=== PATIENT | male | born 1955 | race Two or more races ===

== ENCOUNTER 2017-02-09 14:56 | Inpatient (IN) ==
--- NOTE | 2017-02-09 15:33 | Emergency Department Note ---
IDe Brittany, am scribing for, and in the presence of, Pratima Johnson DO 15:31. IAlex Debra, DO, personally performed the services described in this documentation, ascribed by Delaney Kc in my presence, and it is both accurate and complete 533 . Arrival - Arrival Chief Complaint: Abdominal / Flank Pain Stated Complaint: ABD.PAIN ED Nursing Triage Note: C/O HAVING ABD.PAIN SINCE LAST EVENING., STATES THE PAIN GOT WORSE THIS AM AROUND 0100 , + NAUSEA., + VOMITING SINCE THAT TIME., TRANSFER FROM [facility] LAST BM WAS LAST EVENING ., Mode of Arrival: Ambulatory Limitations: No Limitations Source: Patient, RN Notes Reviewed - History of Present Illness HPI Narrative: Patient is a 61 y/o white male presenting to the ED from [facility] for further evaluation of possible small intestinal blockage. Patient presented to [place] ED this morning for abdominal pain that began yesterday evening and progressively worsened this morning around 0100. Upon that time patient began to experience associated nausea and vomiting. Last normal bowel movement was yesterday evening. Patient reports a history of Cholecystectomy and Appendectomy with complications that turned laparoscopic procedure into an open procedure. About a year later he had to have a hernia repair. Patient has no other complaint/pain. Review of System - Review of System 12 point system: reviewed and no additional remarkable complaints except as stated - Review of System Gastrointestinal: Present: abdominal pain, nausea, vomiting Medical,Surgical,& Family Hx - Medical History Cardio: History of: Hypertension Endocrine: History of: Dyslipidemia - Social History Smoking Status: Never smoker Frequency of Alcohol Use: Rarely Type of Drug Use: None Exam Vital Signs: Vital Signs Temperature 98.5 F 02/09/17 14:57 Pulse Rate 100 H 02/09/17 15:30 Respiratory Rate 20 02/09/17 15:30 Blood Pressure 135/93 02/09/17 15:30 O2 Sat by Pulse Oximetry 94 L 02/09/17 15:30 - General General appearance: alert, in no apparent distress - Head Head exam: Present: atraumatic, normocephalic, normal inspection - Eye Eye exam: Present: normal appearance, PERRL, EOMI - ENT ENT exam: Present: normal exam, normal oropharynx - Neck Neck exam: Present: normal inspection, full ROM, trachea midline - Chest Chest inspection: Present: normal inspection, symmetric chest wall rise - Respiratory Respiratory exam: Present: normal lung sounds bilaterally. Absent: rales, rhonchi, wheezes - Cardiovascular Cardiovascular exam: Present: regular rate, normal rhythm, normal heart sounds. Absent: murmur, rubs, gallop - Abdominal Exam Abdominal exam: Present: soft, distention, tenderness (diffuse abdominal tenderness to palpation), diminished bowel sounds, incision (scar consistent with prior open cholecystectomy and appendectomy). Absent: normal bowel sounds - Extremities Exam Extremities exam: Present: normal inspection - Back Exam Back exam: Present: normal inspection - Neurological Exam Neurological exam: Present: alert, oriented X3, CN II-XII intact. Absent: motor sensory deficit - Psychiatric Psychiatric exam: Present: normal affect, normal mood - Skin Skin exam: Present: warm, dry, intact, normal color Course Course Narrative: spoke with Dr Moralez who will admit pt, pt is stable at this time Disposition Clinical Impression: Small bowel obstruction Case discussed with: patient Disposition: Still a Patient Condition: Stable Time of Disposition: 15:55
[2017-02-09] MEDS ORDERED: PIPERACILLIN/TAZOBACTAM 3,375 MG in SODIUM CHLORIDE 0.9% 100 ML IV STA (15:55)
[2017-02-09] MEDS ORDERED: ONDANSETRON 4 MG/2 ML VIAL IV PRN ×2 (15:57→16:01)
[2017-02-09] MEDS ORDERED: PIPERACILLIN/TAZOBACTAM 3,375 MG VIAL IV ONE (16:04)
--- NOTE | 2017-02-09 17:00 | General Surg History&Physical ---
Assessment and Plan (1) Small bowel obstruction Status: Acute Assessment and plan: Impression: #1 incarcerated recurrent incisional hernia #2 partial small bowel obstruction secondary to #1 Plan: I see no evidence of bowel compromise. Patient is not in any distress. I discussed with him the need for operative repair. We discussed the procedure for repair of his hernia, how it is performed and the anticipated recovery. He understands we will have to use mesh. Risk of the procedure including bleeding , infection, damage to surrounding structures, need for further surgery were all discussed in detail and he would like to proceed. Current Visit: Yes History of Present Illness Chief complaint: Abdominal pain History of present illness: Mr. Coronado is a 61 year old male with a 2 day history of mild abdominal pain. Patient states his been feeling like he has gas pains. He was transferred from another facility with a diagnosis of partial small bowel obstruction. He has not had any nausea or vomiting. He has been having bowel movements. He has noticed decreased flatus in the last 24 hours. Previous surgical history noted. Underwent open appendectomy and cholecystectomy followed by a incisional hernia repair the following year that was done with mesh. He states his last surgery was in the . He states he was told he had a hernia in [place] but that it did not need to be fixed. He has no chest pain or shortness of breath. He has hypertension and hypercholesterolemia. He denies any heart or lung problems. Home Medications Medication Instructions Recorded Confirmed Type Amlodipine Besylate [Amlodipine 5 mg PO QAM 02/09/17 02/09/17 History Besylate] Loratadine/Pseudoephedrine 1 each PO QAM PRN 02/09/17 02/09/17 History [Loratadine-D 12 Hour Tablet] Ranitidine Tab [Zantac Tab] 75 mg PO QPM 02/09/17 02/09/17 History Rosuvastatin Calcium [Rosuvastatin 20 mg PO QPM 02/09/17 02/09/17 History Calcium] Allergies Allergy/AdvReac Type Severity Reaction Status Date / Time No Known Allergies Allergy Unverified 02/09/17 16:30 Medical,Surgical,& Family Hx - Medical History Cardio: History of: Hypertension Endocrine: History of: Dyslipidemia - Social History Smoking Status: Never smoker Frequency of Alcohol Use: Rarely Type of Drug Use: None Exam - Constitutional Vitals: Period Temp Pulse Resp BP Sys/Rae Pulse Ox Last 24 Hr 100-106 18-20 127-136/82-85 94-95 General appearance: no acute distress - Head Head exam: Present: normocephalic - ENT Mouth exam: Present: normal external inspection - Neck Neck exam: Present: normal inspection - Cardiovascular Cardiovascular exam: Present: RRR - GI/Abdominal GI/Abdominal exam: Present: soft (Protuberant abdomen. Soft with minimal tenderness elicited. Hernia difficult to feel due to body habitus but I am unable to reduce it.) - Back Exam Back exam: Present: normal inspection - Neurological Exam Neurological exam: Present: alert, oriented X3 Speech: Present: normal - Skin Skin exam: Present: normal color 12 point system: reviewed and no additional remarkable complaints except as stated Results - Labs Lab Results: I have reviewed the past 24 hour labs (From the previous hospital)
[2017-02-09 20:29] LABS: Albumin 3.6 G/DL (3.4-5.0); Bilirubin,Total 0.8 MG/DL (0.2-1.0); Calcium 8.7 MG/DL (8.5-10.1); Osmolality,Calculated 284.3 MOS/KG (273-304); Potassium 4.2 MMOL/L (3.5-5.1); Total Protein 7.1 G/DL (6.4-8.3)
[2017-02-10] MEDS: PIPERACILLIN/TAZOBACTAM 3,375 MG in SODIUM CHLORIDE 0.9% 100 ML IV SCH ×3 (00:30→17:17)
[2017-02-10] MEDS: DEXTROSE 5% NACL 0.45% 1,000 ML IV SCH ×2 (00:40→08:29)
[2017-02-10] MEDS ORDERED: PANTOPRAZOLE 40 MG TABLET PO SCH (09:00)
[2017-02-10] MEDS ORDERED: TISSUE ADHESIVE 1 EACH APPLICATOR TOP ONE (09:01)
[2017-02-10] MEDS ORDERED: ceFAZolin 1,000 MG VIAL ONE (09:05)
[2017-02-10] MEDS ORDERED: LIDOCAINE 1%/EPI INJ 20 ML VIAL ONE (09:05)
[2017-02-10] MEDS ORDERED: BUPIVACAINE MPF 0.25% /EPI 30 ML VIAL ONE (09:05)
[2017-02-10] MEDS ORDERED: NEOSTIGMINE 10 MG/10 ML VIAL ONE (09:42)
[2017-02-10] MEDS ORDERED: SUCCINYLCHOLINE 200 MG/10 ML VIAL ONE (09:42)
[2017-02-10] MEDS ORDERED: ONDANSETRON 4 MG/2 ML VIAL ONE (09:42)
[2017-02-10] MEDS ORDERED: KETOROLAC 30 MG/1 ML VIAL ONE (09:42)
[2017-02-10] MEDS ORDERED: GLYCOPYRROLATE 0.4 MG/2 ML VIAL ONE (09:42)
[2017-02-10] MEDS ORDERED: PROPOFOL 200 MG/20 ML VIAL IV ONE (09:42)
[2017-02-10] MEDS ORDERED: LIDOCAINE 2% 5 ML VIAL ONE (09:42)
[2017-02-10] MEDS ORDERED: ROCURONIUM 100 MG/10 ML VIAL IV ONE (09:42)
--- NOTE | 2017-02-10 12:04 | Operative Note ---
Date of procedure: 02/10/17 Procedure: Dr. [facility] assistant director report Jonathan Amador [facility] ER date 02/10/2017 Surgeon Lexi Coffee Weigher surgeon Aguila Procedure patient had recurrent incisional hernia. Good had only mesh in the distant past. Had recurrent incarceration. I assisted Dr. Moralez with the procedure of exposing the anterior fascia and the mesh enteroclysis to remove small bowel from the incarcerated hernias removal of the old mesh and a Elbe- Stoppa type of mesh repair placing retrorectus preperitoneal mesh. Dr. Moralez will complete the official operative report. Surgeon / Physician: Johnny Ayers Results - Labs CBC & BMP: 02/09/17 19:38 Discharge Plan - Discharge Medications No Action Rosuvastatin Calcium [Rosuvastatin Calcium] 20 mg PO QPM Loratadine/Pseudoephedrine [Loratadine-D 12 Hour Tablet] 1 each PO QAM PRN PRN Reason: Allergy Symptoms Amlodipine Besylate [Amlodipine Besylate] 5 mg PO QAM Rosuvastatin [Crestor] 10 mg PO DAILY Omeprazole [Prilosec] 20 mg PO DAILY Ranitidine Tab [Zantac Tab] 75 mg PO QPM - Follow Up or Referral - Forms/Instructions
--- NOTE | 2017-02-10 12:30 | Anesthesia Post-Op ---
Anesthesia Post OP - Post Ansesthetic Evaluation Patient seen in post op: Yes Resp: within normal limits CV: within normal limits Mental: within normal limits Temp: within normal limits [id number]: within normal limits Nausea and Vomiting: within normal limits Pain: within normal limits
[2017-02-10] MEDS ORDERED: SEVOFLURANE 1 UNIT/15 MINUTE INH ONE (12:32)
[2017-02-10] MEDS ORDERED: HYDROmorphone 2 MG/1 ML VIAL ONE (12:32)
[2017-02-10] MEDS ORDERED: MIDAZOLAM 2 MG/2 ML VIAL ONE (12:33)
[2017-02-10] MEDS ORDERED: LACTATED RINGERS 2,000 ML IV ONE (12:33)
[2017-02-10] MEDS ORDERED: ACETAMINOPHEN 1,000 MG/100 ML VIAL IV ONE (12:33)
[2017-02-10] MEDS ORDERED: fentaNYL 100 MCG/2 ML VIAL ONE ×2 (12:33)
--- NOTE | 2017-02-10 12:33 | Operative Note ---
Date of procedure: 02/10/17 Pre-op diagnosis: 1. Small bowel obstruction #2 incarcerated recurrent incisional hernia Post-op diagnosis: same Procedure: Procedure performed: #1 exploratory laparotomy with lysis of adhesions to free the bowel obstruction #2 repair of recurrent incarcerated incisional hernia with mesh using Bustamante Stoppa technique #3 resection of old mesh #4 modifier 22 Procedure in detail: After informed consent was obtained, the patient was taken operating suite and laid supine on the operating table. After general anesthesia was induced abdomen was prepped and draped in usual sterile fashion. After procedural pause incision was made in the previous scar. Dissection carried down through skin and soft tissue. Identified the mesh and dissected away from the surrounding subcutaneous tissue up to its borders. On the superior border of the mesh there was a hernia defect present containing omentum. I dissected the sac in this space away from its interface with the surrounding fascia as well as the mesh inferiorly. I opened the sac and there was some incarcerated omentum which was removed. Once the sac was opened gain entrance into the abdominal cavity and was able to identify that there was a large complex hernia below the mesh. Apparently the patient had an overlay technique mesh placement in the past. I was able to divide the mesh and identify and lyse the adhesions below the mesh. There were multiple loops of small bowel going into this hernia sac attached to the bottom of the mesh and these were all dissected free without any injury to the bowel. The obstruction point was identified and the band causing it was released and it was a in the hernia sac. I removed the previous mesh that did not appear to be incorporated to the fascia below it and passed it off the field. All of the hernia sac was reduced back to within the abdomen and ran the small bowel lysing all the adhesions. There was good hemostasis and the abdomen was thoroughly irrigated and suctioned. Next a developed the plane between the rectus muscle and the transversalis fascia below it. This was done circumferentially and the peritoneum and posterior fascia was reapproximated using a running #1 Prolene sutures. Next a flat piece of pro-station air traffic control specialist mesh measuring 30 x 15 cm was placed in the retrorectus space and unfolded with the sticky side down. It adequately covered the previous defect and extended far laterally. Next to 10 Tun[place] Ge drains were placed over the mesh in the midline fascia was reapproximated using #1 running Prolenes without any tension. Another Ge drain was placed in the subcutaneous tissue and thorough irrigation performed. The soft tissue closed using 2-0 running Vicryl stitch sutures. Incision closed with dilan. Drain secured in place with 2-0 nylon. Sterile dressings applied and the patient was extubated taken recovery room in stable condition. All lap and needle counts were correct in the case Admitting modifier 22 for the extensive time and effort required to be on a normal procedure of this type. This was secondary to the patient's multiple previous surgeries and the intense adhesions present requiring careful dissection. Is easily doubled the operative time. Anesthesia: KIKAA Surgeon / Physician: Dirk Moralez Linseed Oil Boiler: Johnny Ayers Estimated blood loss: other (100 cc) Specimens: other (Old mesh, portion of omentum) Condition: stable Disposition: PACU Results - Labs CBC & BMP: 02/09/17 19:38 Discharge Plan - Discharge Medications No Action Rosuvastatin Calcium [Rosuvastatin Calcium] 20 mg PO QPM Loratadine/Pseudoephedrine [Loratadine-D 12 Hour Tablet] 1 each PO QAM PRN PRN Reason: Allergy Symptoms Amlodipine Besylate [Amlodipine Besylate] 5 mg PO QAM Rosuvastatin [Crestor] 10 mg PO DAILY Omeprazole [Prilosec] 20 mg PO DAILY Ranitidine Tab [Zantac Tab] 75 mg PO QPM - Follow Up or Referral - Forms/Instructions
[2017-02-10 12:55] LABS: Apearance,Urine CLEAR (Clear); Bacteria,Urine Occasional /HPF (Few); Bilirubin,Urine Negative (Negative); Blood, Urine Negative (Negative); Glucose,Urine (UA) Negative (Negative); Ketones,Urine Negative (Negative); Mucus,Urine Occasional /LPF (Occasional); Nitrite,Urine Negative (Negative); Protein,Urine Negative; RBC,Urine 1 /HPF (0-4); Squamous Epithelial Cell,Urine Occasional /HPF (0-10); Urine Color Yellow (Yellow); Urine Specific Gravity 1.023 (1.001-1.035); Urine Urobilinogen < 2.0 EU/DL (0.2-1.0); WBC,Urine 1 /HPF (0-6)
[2017-02-10] MEDS ORDERED: HYDROmorphone 2 MG/1 ML VIAL IV PRN (13:01)
[2017-02-10] MEDS ORDERED: ONDANSETRON 4 MG/2 ML VIAL IV PRN (13:01)
[2017-02-10] MEDS ORDERED: SODIUM CHLORIDE 0.9% 1,000 ML IV SCH (13:30)
[2017-02-10] MEDS: HYDROmorphone 2 MG/1 ML VIAL IV PRN ×2 (17:24→21:23)
[2017-02-11] MEDS: PIPERACILLIN/TAZOBACTAM 3,375 MG in SODIUM CHLORIDE 0.9% 100 ML IV SCH ×3 (00:12→15:13)
[2017-02-11] MEDS: HYDROmorphone 2 MG/1 ML VIAL IV PRN ×2 (01:54→06:20)
[2017-02-11] MEDS: DEXTROSE 5% NACL 0.45% 1,000 ML IV SCH ×2 (05:05→21:15)
--- NOTE | 2017-02-11 10:08 | Event Note ---
Status post exploratory laparotomy with lysis of adhesions Hansa small bowel obstruction as well as repair of recurrent, incarcerated incisional hernia with mesh placement DOS 02/10/2017. S: Patient sitting up in a chair this morning reporting that his pain is controlled. No chest pain, shortness of breath, wheeze or cough overnight. Small is in place. NG tube output 75 cc overnight. Patient is tolerating binder. Continues on Zosyn and IV fluids. O: Vital signs are stable afebrile overnight. I/O: Adequate urine output. NG tube 75 cc total postoperatively. DAGOBERTO 1 35 cc total since surgery; DAGOBERTO number 11/13/2019 5 cc of surgery; DAGOBERTO #3 1 30 cc since surgery HEENT head is atraumatic normocephalic Heart: Regular rate and rhythm Lungs: Clear to all station bilaterally Abdomen: DAGOBERTO drains with serosanguineous drainage. Abdominal binder is in place. Surgical dressings are clean and dry. Hypoactive bowel sounds. Appropriate postoperative tenderness. Abdomen soft. Extremities: No pedal edema is noted. No calf tenderness. No a.m. labs A/P 1. Postop day #1 status post above procedures. Patient actually looks really good this morning. We will DC his Small catheter and NG tube. Start ice chips and mobilize as tolerated. Continue abdominal binder. Encourage incentive spirometer. Continue IV fluids and analgesics. Continue Zosyn. Check BMP and CBC in a.m. 2. History of hypertension: We will start amlodipine with sip of water today. Currently blood pressure is well controlled. Monitor. 3. Hyperlipidemia: We will hold home meds until tolerating p.o. intake. 4. History of GERD: Hold home meds. Start PPI IV for now. Transition to p.o. once tolerating p.o. 5. DVT prophylaxis: SCDs today. Start Lovenox tomorrow if H&H stable. Concern for possible bleeding postoperatively at this time. 6. GI prophylaxis as above 7. Disposition: Anticipate discharge home is patient progressively tolerates diet.
[2017-02-11] MEDS: PANTOPRAZOLE 40 MG VIAL IV SCH (10:09)
[2017-02-11] MEDS: amLODIPine 5 MG TABLET PO SCH (10:11)
--- NOTE | 2017-02-11 11:25 | Pathology Report from [facility] ---
ACCESSION # : [id number] PATIENT NAME : Jonathan Anton ORDERING DR : Dirk Moralez MD CLINICAL HX: Incarcerated, recurrent Incisional hernia, small bowel obstruction POST-OP DX: Same SPECIMEN INFO: Explanted mesh and herniated omentum GROSS DESCRIPTION: The specimen is received in formalin labeled with the patient 's name and consists of two fragments of synthetic mesh material measuring 13.0 x 7.8 cm with attached fragments of adipose tissue noted. Received separately in the container are two fragments of fibrofatty tissue measuring 7.0 x 4.8 x 2.0 cm collectively. Radial Saw Operator sections submitted in one cassette. DIAGNOSIS FOR JONATHAN ANTON: Mesothelial lined fibroconnective tissue and fragments of artificial mesh material, c/w incisional hernia. SERVICE DATE: 02/10/2017 REPORT DATE: 02/11/2017 PATHOLOGIST: Oj Godinez M.D. MTDD
[2017-02-11 11:39] LABS: Calcium 7.8 MG/DL (8.5-10.1); Osmolality,Calculated 283.1 MOS/KG (273-304)
[2017-02-12] MEDS: PIPERACILLIN/TAZOBACTAM 3,375 MG in SODIUM CHLORIDE 0.9% 100 ML IV SCH ×3 (03:29→17:07)
[2017-02-12 05:00] LABS: Basophils % 0.4 % (0.0-0.8); Eosinophils # 0.1 10*3/uL (0.0-0.87); Eosinophils % 1.1 % (0.00-10.9); Hematocrit 37.5 VOL% (42.0-52.0); Hemoglobin 12.5 GM/DL (14.0-18.0); Immature Granulocytes % 0.6 %; Immature Granulocytes Absolute 0.06 #; Lymphocytes # 1.5 10*3/uL (1.4-4.0); Lymphocytes % 15.4 % (21.2-54.2); Mean Corpuscular HGB Conc 33.3 GM/DL (32-36); Mean Corpuscular Hemoglobin 31 PG (27-34); Mean Corpuscular Volume 93.5 FL (87-102); Mean Platelet Volume 9.5 FL (9.6-12.0); Monocytes # 1.2 10*3/uL (0.11-0.8); Monocytes % 12.9 % (1.7-12.7); Neutrophils # 6.7 10*3/uL (1.4-7.4); Neutrophils % 69.6 % (38.7-73.9); Platelet Count 173 T/CUMM (130-400); Red Blood Count 4.01 MC/CUMM (3.8-5.5); Red Cell Distribution Width 14.3 % (9.3-17.3); White Blood Count 9.6 T/CUMM (4-12)
[2017-02-12 05:29] LABS: Calcium 8.2 MG/DL (8.5-10.1); Osmolality,Calculated 275.5 MOS/KG (273-304); Potassium 3.5 MMOL/L (3.5-5.1)
[2017-02-12] MEDS: DEXTROSE 5% NACL 0.45% 1,000 ML IV SCH ×3 (06:27→17:12)
--- NOTE | 2017-02-12 08:49 | Event Note ---
Status post ex lap with lysis of adhesions and repair of recurrent incarcerated incisional hernia. T-max 100.9 vital signs stable. Patient is doing very well. He is sitting up in a chair he has been ambulating. His pain is improved. He has no nausea or vomiting. His abdomen is soft appropriately tender nondistended. Incision okay. Labs noted. Looks okay We will continue ambulation. We will start clear liquids and advance diet as tolerated. Going to keep his antibiotics going since he had a low-grade fever. They can be stopped when he is afebrile. Anticipate discharge home in an day or 2.
[2017-02-12] MEDS: amLODIPine 5 MG TABLET PO SCH (08:50)
[2017-02-12] MEDS: PANTOPRAZOLE 40 MG VIAL IV SCH (08:50)
[2017-02-13] MEDS: PIPERACILLIN/TAZOBACTAM 3,375 MG in SODIUM CHLORIDE 0.9% 100 ML IV SCH ×3 (00:48→16:27)
[2017-02-13] MEDS: DEXTROSE 5% NACL 0.45% 1,000 ML IV SCH ×2 (07:15→15:43)
[2017-02-13] MEDS: PANTOPRAZOLE 40 MG VIAL IV SCH (09:15)
[2017-02-13] MEDS: amLODIPine 5 MG TABLET PO SCH (09:15)
--- NOTE | 2017-02-13 16:11 | Event Note ---
General Surgery Progress Note Chief complaint This patient is a 61-year-old man admitted with a small bowel obstruction because of recurrent ventral incisional hernia treated by Dr. Elliott with laparotomy with lysis of adhesions and repair of incisional hernia on 02/10/2017 Interval history The patient has been kept in the hospital for low-grade fever but he had none yesterday. His white blood cell count is normal today. He is tolerating clears and passing gas but he has not had a bowel movement yet. His DAGOBERTO drains are serosanguineous. He is still on antibiotics. He is getting up and walking in the hallway some using his incentive spirometer. Physical exam The patient is afebrile with normal vital signs His abdominal exam is unremarkable with a clean incision and DAGOBERTO drains with serosanguineous output. He is wearing a binder and this was taken down to look at his wound. Bowel sounds are present. Labs Reviewed, as above Imaging None new Assessment and plan We will stop the patient's antibiotics and advance his diet. Plan for discharge home tomorrow if he is doing well.
[2017-02-14] MEDS: amLODIPine 5 MG TABLET PO SCH (09:00)
[2017-02-14] MEDS: PANTOPRAZOLE 40 MG VIAL IV SCH (09:01)
--- NOTE | 2017-02-14 10:29 | Discharge Summary ---
Hospital Course - Hospital Course Hospital Course: The pt is 61 y/o male who presented with transferred from outside facility with SBO and urgently underwent exploatory laparotomy with lysis of adhesions to free SBO with ventral hernia repair with prosthetic mesh. No complications of procedure. Due to complexity of procedure, diet progressed very slowly which pt tolerated well. The patient ultimately with adequate pain management and tolerance of regular diet and activity; voiding and passing flatus without difficulty. Pt discharged home in good condition. Reviewed with patient bowel regimen and need to wear binder at all times. Diagnosis - Discharge Diagnosis (1) Small bowel obstruction Status: Acute (2) Incarcerated incisional hernia Status: Acute Specialty Discharge - Follow Up or Referrals Follow up with: Dirk Moralez MD [Physician] - 02/26/17 9:00 am Discharge Plan - Discharge Data Disposition: Disch To Home/Self Care Condition at Discharge: Stable Discharge Diet: advance to your usual diet Activity: no lifting (> 5-7lb) Hygiene: may shower Driving: not until seen by doctor Contact your physician if you experience:: fever over 101, Difficulty voiding, Redness or swelling, Nausea/Vomiting, Shortness of breath, Bleeding, pain uncontrolled by pain medications Wound / Dressing Care Instructions: Keep wounds clean, dry and covered. Do not soak or submerge wounds. Do not aggressively rub wounds. - Discharge Medications New HYDROcodone/ACETAMIN 7.5-325 [[place] 7.5-325] 1 tablet PO Q4H PRN #30 tablet PRN Reason: Pain Moderate To Severe (4-10) Continue Rosuvastatin Calcium 20 mg PO QPM Loratadine/Pseudoephedrine [Loratadine-D 12 Hour Tablet] 1 each PO QAM PRN PRN Reason: Allergy Symptoms Amlodipine Besylate 5 mg PO QAM Rosuvastatin [Crestor] 10 mg PO DAILY Omeprazole [Prilosec] 20 mg PO DAILY Ranitidine Tab [Zantac Tab] 75 mg PO QPM - Follow Up or Referral Follow Up: Dirk Moralez MD [Physician] - 02/26/17 9:00 am - Forms/Instructions Instructions: Bowel Obstruction (DC), Abdominal Binder (DC), De Hernia Care Exam - Constitutional Vitals: Period Temp Pulse Resp BP Sys/Rae Pulse Ox Last 24 Hr 97.5 F-99.3 F 76-88 18-20 100-128/62-89 90-96 General appearance: no acute distress, morbidly obese - Eye Eye exam: Absent: conjunctival injection, scleral icterus - Respiratory Respiratory exam: Present: clear to auscultation bilaterally - Cardiovascular Cardiovascular exam: Present: regular rate and rhythm - GI/Abdominal GI/Abdominal exam: Present: normal bowel sounds, tenderness (appropriate postop tenderness; dressings c/d/i), soft, other (obese) - Extremities Exam Extremities exam: Absent: calf tenderness, edema - Neurological Exam Neurological exam: Present: alert, oriented X3 - Skin Skin exam: Present: normal color, warm Discharge Results Procedures and tests throughout hospitalization: 1. Laparoscopy with lysis of adhesions - Additional Comments Transfer chart and images reviewed. DS: Provider Date of admission: 02/09/17 15:59 Primary care physician: . No PCP Attending physician on admission: Dirk Moralez MD Consults: 02/09/17 18:31 Consult to Pharmacy [CONS] Routine Reason for Pharmacy Consult: Adjust Meds Renal Funct Discharging clinician: Rita Cortes PA-C
[2017-02-14 11:34] VITALS: BP 144/95
== END 2017-02-14 13:10 | disposition home or self-care (01) | DRG 337 ==
LOC: EDUNIT# → EDBD → N.ED 14:56 → N.EDINP 15:59 → N.3E 16:38
PROVIDERS: ADMIT Surgery; ATTEND Surgery